=== PATIENT | male | born 1955 | race Caucasian/White ===

== ENCOUNTER 2018-08-11 20:16 | Emergency (ER) | payer OTHER ==
[~2018-08-11] VITALS: Ht 185.4 cm; Wt 83.9 kg
[~2018-08-11 20:16] MED LIST: BENTYL 10 MG CA10 M1 PO; CLONAZEPAM 1 MG1 M1 PO; DIFLUCAN200 MG PO; DILANTIN100 MG PO; HYDROXYZINE HCL25 M1 PO; MEDROL DOSPAK21 TA1 PO; NEURONTIN 300300 M1 PO; OMEPRAZOLE20 M3 PO; ONDANSETRON HCL4 M2 PO; PROVIGIL 200 M200 MG PO; TESTOSTERONE TOP; VERAPAMIL ER120 MG PO; VIBRAMYCIN 100100 M2 PO; WELLBUTRIN SR100 MG PO; XANAX1 MG PO
[2018-08-11] MEDS ORDERED: MEDROLDOSEPACK PO (21:30)
[2018-08-11 21:45] VITALS: BP 150/88
--- NOTE | 2018-08-12 09:08 | EKG ---
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1955 Requested By: Roro Forbes Order Number: [id number] MD: Tom Wyman Measurements Intervals [place] Rate: 90 P: [place]: QRS: -43 QRSD: 163 T: -31 QT: 417 QTc: 511 Interpretive Statements Atrial fibrillation Right bundle branch block Left anterior hemiblock Compared to ECG 01/26/2018 15:43:47 Right bundle-branch block now present Electronically Signed On 08-12-2018 9:08:41 DEVELOPMENT MANAGER by Tom Wyman [email or web address] ��������������������������������������������� <ELECTRONICALLY SIGNED> ���������������������������������������� By: Tom Wyman MD, [facility] ��������������������������������������������� 08/12/18907 33 33 Tom Wyman MD, [facility] /EPI
== END 2018-08-11 21:45 | disposition home or self-care (01) ==
LOC: ER 20:16
DX: J40 Bronchitis, not specified as acute or chronic (principal); F41.9 Anxiety disorder, unspecified; I48.91 Unspecified atrial fibrillation; Z88.1 Allergy status to other antibiotic agents; Z88.0 Allergy status to penicillin; Z91.018 Allergy to other foods; Z88.8 Allergy status to other drugs, medicaments and biological substances

== ENCOUNTER 2018-11-25 05:29 | Emergency (ER) | payer OTHER ==
[~2018-11-25] VITALS: Ht 185.4 cm; Wt 81.7 kg
[~2018-11-25 05:29] MED LIST changes: +MEDROLDOSEPACK PO
[2018-11-25] MEDS ORDERED: ALL DAY ALLERGY10 M3 PO (05:42)
[2018-11-25] MEDS ORDERED: MEDROLDOSEPACK PO (06:40)
[2018-11-25] MEDS ORDERED: TESSALON PERLE100 MG PO (06:40)
[2018-11-25 06:51] VITALS: BP 108/86
--- NOTE | 2018-11-25 08:44 | EKG ---
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1955 Requested By: Roland Stapleton Order Number: [id number] MD: Tom Wyman Measurements Intervals [place] Rate: 76 P: [place]: QRS: -26 QRSD: 153 T: -4 QT: 431 QTc: 485 Interpretive Statements Atrial fibrillation Right bundle branch block Compared to ECG 08/11/2018 20:34:35 Left anterior fascicular block no longer present Electronically Signed On 11-25-2018 8:44:23 CDT by Tom Wyman [email or web address] ��������������������������������������������� <ELECTRONICALLY SIGNED> ���������������������������������������� By: Tom Wyman MD, [facility] ��������������������������������������������� 11/25/18 0844 4 4 Tom Wyman MD, [facility] /EPI
== END 2018-11-25 07:01 | disposition home or self-care (01) ==
LOC: ER 05:29
DX: R05 Cough (principal); R06.02 Shortness of breath; R11.0 Nausea; I48.91 Unspecified atrial fibrillation; Z88.1 Allergy status to other antibiotic agents; Z88.0 Allergy status to penicillin; Z88.8 Allergy status to other drugs, medicaments and biological substances; Z91.018 Allergy to other foods

== ENCOUNTER 2019-01-31 04:27 | Emergency (ER) | payer OTHER ==
[~2019-01-31] VITALS: Ht 185.4 cm; Wt 90.7 kg
[~2019-01-31 04:27] MED LIST changes: +ALL DAY ALLERGY10 M3 PO; +TESSALON PERLE100 MG PO
[2019-01-31] MEDS ORDERED: BENADRYL25 MG PO (05:14)
[2019-01-31] MEDS ORDERED: CLONAZEPAM 1 MG1 M1 PO (05:14)
[2019-01-31] MEDS ORDERED: MAGOX 400400 MG PO (05:15)
[2019-01-31] MEDS ORDERED: PREDNISONE 20 M20 MG PO (06:35)
[2019-01-31] MEDS ORDERED: ZPAK PO (06:35)
[2019-01-31 06:51] VITALS: BP 107/79
--- NOTE | 2019-01-31 08:24 | EKG ---
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 01/31/19 0824 0532 0532 Tom Wyman MD, [facility] /EPI
== END 2019-01-31 06:52 | disposition home or self-care (01) ==
LOC: ER 04:27
DX: J18.9 Pneumonia, unspecified organism (principal); I48.91 Unspecified atrial fibrillation; Z88.8 Allergy status to other drugs, medicaments and biological substances; Z88.1 Allergy status to other antibiotic agents; Z88.0 Allergy status to penicillin; Z91.018 Allergy to other foods

== ENCOUNTER 2019-05-06 16:55 | Emergency (ER) | payer OTHER ==
[~2019-05-06] VITALS: Ht 185.4 cm; Wt 86.2 kg
[~2019-05-06 16:55] MED LIST changes: +BENADRYL25 MG PO; +MAGOX 400400 MG PO; +PREDNISONE 20 M20 MG PO; +ZPAK PO
[2019-05-06 16:56] VITALS: BP 132/83
[2019-05-06] MEDS ORDERED: FLONASE 0.05%50 MCG NASAL (18:07)
[2019-05-06] MEDS ORDERED: ZYRTEC10 M2 PO (18:07)
== END 2019-05-06 18:00 | disposition home or self-care (01) ==
LOC: ER 16:55
DX: J30.9 Allergic rhinitis, unspecified (principal); I48.91 Unspecified atrial fibrillation; Z88.5 Allergy status to narcotic agent; Z88.0 Allergy status to penicillin; Z91.018 Allergy to other foods; Z88.1 Allergy status to other antibiotic agents; Z79.899 Other long term (current) drug therapy